=== PATIENT | male | born 1995 ===

== ENCOUNTER → 2017-02-27 | Outpatient (CLI) | payer OTHER | LOC: COL.PUL 12:53 | DX: R94.2 Abnormal results of pulmonary function studies (principal) | CPT/HCPCS: J7674 ==

== ENCOUNTER 2017-11-14 20:45 | Emergency (ER) | payer OTHER ==
[~2017-11-14] VITALS: Ht 180.3 cm; Wt 72.7 kg
[2017-11-14 20:49] VITALS: BP 116/70; TEMP 98
[2017-11-14] MEDS ORDERED: TRIAM OI 0.1 454 TOP (20:51)
[2017-11-14 21:02] LABS: COLLECTION METHOD CLEAN CATCH
[2017-11-14 21:13] LABS: MUCOUS Present /lpf; PH 7 (5-8); SQUAMOUS EPITHELIAL None Seen /hpf; URINE APPEARANCE Clear; URINE BACTERIA None Seen /hpf; URINE BILIRUBIN Negative (NEGATIVE); URINE BLOOD Negative (NEGATIVE); URINE COLOR Yellow; URINE GLUCOSE Negative (NEGATIVE); URINE KETONE Negative (NEGATIVE); URINE LEUKOCYTE ESTERASE Negative (NEGATIVE); URINE NITRATE Negative (NEGATIVE); URINE PROTEIN(semi-quant) Negative (NEGATIVE); URINE RBC 0-2 /hpf; URINE UROBILINOGEN Negative (NEGATIVE)
[2017-11-14] MEDS ORDERED: DOXYCYCLINE 10100 MG PO (23:50)
[2017-11-15 00:21] VITALS: PULSE 82
== END 2017-11-15 00:22 | disposition home or self-care (01) ==
LOC: COL.ER 20:45
PROVIDERS: Emergency Medicine
DX: N50.812 Left testicular pain (principal); J45.909 Unspecified asthma, uncomplicated; Z87.2 Personal history of diseases of the skin and subcutaneous tissue
CPT/HCPCS: J0696

== ENCOUNTER 2019-04-16 19:49 | Emergency (ER) | payer BC ==
[~2019-04-16] VITALS: Ht 177.8 cm; Wt 72.7 kg
[~2019-04-16 19:49] MED LIST: DOXYCYCLINE 10100 MG PO; TRIAM OI 0.1 454 TOP
[2019-04-16 20:17] VITALS: BP 120/63
[2019-04-16 20:33] LABS: COLLECTION METHOD CLEAN CATCH
[2019-04-16 20:40] LABS: MUCOUS Present /lpf; PH 7 (5-8); SQUAMOUS EPITHELIAL None Seen /hpf; URINE APPEARANCE Hazy; URINE BACTERIA None Seen /hpf; URINE BILIRUBIN Negative (NEGATIVE); URINE BLOOD 1+ (NEGATIVE); URINE COLOR Yellow; URINE GLUCOSE Negative (NEGATIVE); URINE KETONE Negative (NEGATIVE); URINE LEUKOCYTE ESTERASE Negative (NEGATIVE); URINE NITRATE Negative (NEGATIVE); URINE PROTEIN(semi-quant) Negative (NEGATIVE); URINE RBC 0-2 /hpf; URINE UROBILINOGEN Negative (NEGATIVE)
[2019-04-16] MEDS ORDERED: DUPIXENT200 MG/1.1 SQ (20:44)
[2019-04-16] MEDS ORDERED: TEMOVATE0.05% (20:46)
[2019-04-16] MEDS ORDERED: ZYRTEC 10MG10 MG PO (20:46)
[2019-04-16] MEDS ORDERED: MELATONIN5 M1 SL (20:47)
[2019-04-16] MEDS ORDERED: BENADRYL50 MG PO (20:47)
[2019-04-16 21:52] VITALS: PULSE 63; TEMP 97.5
== END 2019-04-16 22:03 | disposition home or self-care (01) ==
LOC: COL.ER 19:49
PROVIDERS: Emergency Medicine
DX: N50.82 Scrotal pain (principal)

== ENCOUNTER → 2019-04-18 | Outpatient (CLI) | payer BC ==
[~2019-04-18] MED LIST changes: +BENADRYL50 MG PO; +DUPIXENT200 MG/1.1 SQ; +MELATONIN5 M1 SL; +TEMOVATE0.05%; +ZYRTEC 10MG10 MG PO
== END ==
LOC: COL.RAD 12:45
DX: I86.1 Scrotal varices (principal)

== ENCOUNTER 2023-12-20 19:25 | Emergency (ER) | payer BC ==
[~2023-12-20] VITALS: Ht 177.8 cm; Wt 95.5 kg
[2023-12-20 19:31] VITALS: BP 131/82; TEMP 98.1
[2023-12-20 19:54] LABS: COLLECTION METHOD CLEAN CATCH
[2023-12-20 20:02] LABS: PH 6.5 (5.0-8.5); URINE APPEARANCE CLEAR (CLEAR/HAZY); URINE BLOOD NEGATIVE (NEGATIVE); URINE COLOR YELLOW (YELLOW); URINE GLUCOSE NEGATIVE (NEGATIVE); URINE KETONE NEGATIVE (NEGATIVE); URINE NITRATE NEGATIVE (NEGATIVE); URINE PROTEIN(semi-quant) NEGATIVE (NEGATIVE); URINE UROBILINOGEN 0.2 E.U/dL (0.2-1.0)
[2023-12-20 20:41] VITALS: PULSE 70
== END 2023-12-20 20:41 | disposition home or self-care (01) ==
LOC: COL.ER 19:25
PROVIDERS: Nurse Practitioner
DX: N50.811 Right testicular pain (principal)